=== PATIENT | female | born 1995 ===

== ENCOUNTER 2017-08-06 14:46 | Emergency (ER) | payer MEDICAID, OTHER ==
[2017-08-06 14:46] VITALS: BMI 37.4
[2017-08-06 15:06] VITALS: BP 122/85; PULSE 81; TEMP 98
[2017-08-06 15:07] VITALS: RESP 14; O2SAT 98
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
== END 2017-08-06 17:20 | disposition home or self-care (01) ==
LOC: C.ER 14:46
DX: M54.9 Dorsalgia, unspecified (principal); V43.52XA Car driver injured in collision with other type car in traffic accident, initial encounter; Y92.410 Unspecified street and highway as the place of occurrence of the external cause